=== PATIENT | female | born 1970 | race Caucasian/White ===

== ENCOUNTER 2016-09-27 17:34 | Emergency (ER) | payer OTHER ==
[~2016-09-27] VITALS: Ht 160 cm; Wt 82.5 kg
[~2016-09-27 17:34] MED LIST: IBUP-1542 PO; NITR-58 PO; PHEN-537 PO; TAMO10TA20 PO
[2016-09-27 17:36] VITALS: Ht 160 cm; Wt 82.5 kg
[2016-09-27] MEDS ORDERED: traMADol 50 MG TAB PO ONE (19:30)
--- NOTE | 2016-09-27 19:47 | RADRPT ---
PROCEDURE: XR Chest. CLINICAL INDICATION: chest pain TECHNIQUE: Single frontal view of the chest was obtained COMPARISON: 10/17/15 FINDINGS: The heart and mediastinum are within normal limits. The lungs are clear. There is no pleural effusion or pneumothorax. RPTAT: AA IMPRESSION: No acute disease. .Antonio Chase MD, MD Date Time Electronically viewed and signed by .Antonio Chase MD, on 09/27/2016 19:47 .S/
[2016-09-27 19:56] LABS: ADD UMIC NO; URINE BILIRUBIN (Dip) NEGATIVE (NEGATIVE); URINE BLOOD (Dip) NEGATIVE (NEGATIVE); URINE COLOR LT. YELLOW (YELLOW); URINE GLUCOSE (Dip) NEGATIVE (NEGATIVE); URINE KETONES (Dip) NEGATIVE (NEGATIVE); URINE LEUKOCYTE ESTERASE (Dip) NEGATIVE (NEGATIVE); URINE NITRITE (Dip) NEGATIVE (NEGATIVE); URINE TOTAL PROTEIN (Dip) NEGATIVE (NEGATIVE); URINE UROBILINOGEN (Dip) 0.2 E.U./dL (0.1-1.0)
[2016-09-27 19:59] LABS: BASOPHILS % 0.4 % (0.0-2.0); EOSINOPHILS # 0.1 10^3/ul (0.0-0.5); EOSINOPHILS % 1.9 % (0.0-7.0); HEMOGLOBIN 12.2 g/dl (12.0-16.0); LYMPHOCYTES # 2.8 10^3/ul (0.8-2.9); LYMPHOCYTES % 42.5 % (15.0-51.0); MEAN CORPUSCULAR HEMOGLOBIN 26.8 pg (29.0-33.0); MEAN CORPUSCULAR VOLUME 81.1 fl (82.0-101.0); MEAN PLATELET VOLUME 8.3 fl (7.4-10.4); MONOCYTE # 0.5 10^3/ul (0.3-0.9); NEUTROPHIL # 3.1 10^3/ul (1.6-7.5); NEUTROPHILS % 47.2 % (39.0-77.0); PLATELET COUNT 296 10^3/UL (140-440); RED BLOOD COUNT 4.56 10^6/ul (4.20-5.40); RED CELL DISTRIBUTION WIDTH 15.5 % (11.5-14.5); UNCORRECTED WBC 6.7 10^3/ul (4.8-10.8); WHITE BLOOD COUNT 6.7 10^3/ul (4.8-10.8)
[2016-09-27 20:02] LABS: ALBUMIN 4.1 g/dl (3.3-4.9)
[2016-09-27 20:03] LABS: CHLORIDE 103 mmol/L (97-110); CONDITION 1; LH ANALYZER COMMENTS 1; POTASSIUM 4.4 mmol/L (3.5-5.1); SODIUM 145 mmol/L (135-144)
[2016-09-27 20:05] LABS: ANION GAP 15 (8-16); ASPARTATE AMINO TRANSFERASE 41 IU/L (15-46); BILIRUBIN,INDIRECT 0.1 mg/dl (0-1.1); BILIRUBIN,TOTAL 0.1 mg/dl (0.2-1.3); CARBON DIOXIDE 31 mmol/L (21-31); CREATININE 0.54 mg/dl (0.44-1.00)
[2016-09-27 20:06] LABS: ALANINE AMINOTRANSFERASE 52 IU/L (13-69); ALKALINE PHOSPHATASE 61 IU/L (42-121); BLOOD UREA NITROGEN 9 mg/dl (7-20); CALCIUM 9.1 mg/dl (8.4-10.2); GLUCOSE 82 mg/dl (70-220)
[2016-09-27 20:17] LABS: ALBUMIN/GLOBULIN RATIO 1.05
[2016-09-27 20:30] LABS: TROPONIN-I < 0.010 ng/ml (0.00-0.12)
--- NOTE | 2016-09-27 22:25 | RADRPT ---
PROCEDURE: CT Abdomen and Pelvis without contrast. CLINICAL INDICATION: Abdominal and pelvic pain. Left upper quadrant pain. TECHNIQUE: CT scan of the abdomen and pelvis without contrast was performed. Coronal and sagittal reformatted images were obtained from the axial source images. Images were reviewed on a high-resolu [employer] PACS workstation. Total exam DLP is 904.29 mGy-cm. CTDIvol is 15.87 mGy. One or more of the f ollowing dose reduction techniques were used: Automated exposure control, adjustment of the mA and/o r kV according to patient size, use of iterative reconstruction technique. COMPARISON: 09/22/2015. FINDINGS: The lung bases are normal. There is no pleural effusion. The liver is enlarged and diffusely decreased attenuation consistent with fatty metamorphosis. Ther e is no focal hepatic lesion. The gallbladder is surgically absent with clips noted in the gallbladder bed. The bile ducts are no rmal. The spleen is normal in size. There is no focal splenic lesion. Both adrenals are normal with no enlargement or mass. The pancreas is unremarkable with no mass or evidence of pancreatitis. There is no renal mass or hydronephrosis. There is no renal calculus or ureteral calculus. The abdominal aorta is not dilated. There is no retroperitoneal lymphadenopathy or mass. There is no pelvic lymphadenopathy or mass. The bladder and distal ureters are normal. The appendix is well seen and appears normal. The bowel and mesentery are normal. There is no free fluid or free gas. The osseous structures are unremarkable with no fracture or lytic lesion. IMPRESSION: 1. Hepatomegaly. 2. Fatty metamorphosis of the liver. 3. Status post cholecystectomy. 4. Normal appendix. 5. No urinary tract calculus or hydronephrosis. 6. Otherwise normal noncontrast CT scan of the abdomen and pelvis. RPTAT: QQ .Ranjith Ibanez MD, MD Date Time Electronically viewed and signed by .Ranjith Ibanez MD, on 09/27/2016 22:24 .R/
[2016-09-27] MEDS ORDERED: TRAM50TA2 PO (22:37)
[2016-09-27 22:56] VITALS: BP 125/89; PULSE 75; RESP 16; TEMP 98
--- NOTE | 2016-10-12 17:51 | ERD ---
ER Documentation Chief Complaint Date/Time DATE: 09/27/16 TIME: 17:49 Chief Complaint LEFT RIB PAIN X 1 MONTH, WORSE SINCE YESTERDAY HPI 46-year-old female complains of left upper abdominal pain on and off for months , worse yesterday. It is worse with any movement, better at rest, localized. She denies chest pain, shortness breath or trauma. ROS All systems reviewed and are negative except as per history of present illness. Medications Home Meds Active Scripts Tramadol HCl (Tramadol HCl) 50 Mg Tablet, 50 MG PO Q4 Y for PAIN, #20 TAB Prov:SOLE BENNETT PA-C 09/27/16 Ibuprofen* (Motrin*) 600 Mg Tab, 600 MG PO BID, #30 TAB 0 Refills Prov:QUINN SIU PA-C 10/17/15 Ibuprofen* (Motrin*) 600 Mg Tab, 600 MG PO Q6, #20 TAB Prov:ANGIE ZALDIVAR NP 09/22/15 Phenazopyridine Hcl* (Pyridium*) 100 Mg Tab, 100 MG PO TID Y for PAIN, #3 TAB Prov:ANGIE ZALDIVAR I. [employer] 09/22/15 Nitrofurantoin Monohyd Macrocr* (Macrobid*) 100 Mg Capsr, 100 MG PO BID for 5 Days, CAP Prov:ANGIE ZALDIVAR I. [employer] 09/22/15 Reported Medications Tamoxifen Citrate* (Tamoxifen Citrate*) Unknown Strength Tab, PO BID, TAB 09/22/15 Allergies Allergies: Coded Allergies: No Known Allergy (Unverified , 09/22/15) PMhx/Soc History of Surgery: Yes (cholecystectomy,tubal ligation,abdominalplasty, breast surgery) Anesthesia Reaction: No Hx Neurological Disorder: No Hx Respiratory Disorders: No Hx Cardiac Disorders: No Hx Psychiatric Problems: No Hx Miscellaneous Medical Probl: Yes (UTI) Hx Alcohol Use: No Hx Substance Use: No Hx Tobacco Use: No Smoking Status: Never smoker Physical Exam Vitals See nursing notes Physical Exam General: Well-developed, well-nourished. The patient appears in no acute distress. HEENT: Head is normocephalic, atraumatic. No scleral icterus. Neck: Supple. Nontender. Lungs: Clear to auscultation. Normal air movement. Heart: Regular rate and rhythm. S1 and S2 are normal. No murmurs, gallops, or rubs. Abdomen: Soft, mild tenderness upon palpation in the left upper quadrant, nondistended. Bowel sounds are normoactive. Extremities: No clubbing or cyanosis. Normal pulses. Moving extremities x 4. No weakness. Neurologic: Alert and oriented 3. No focal deficits. Skin: Normal turgor. No rash or lesions. Results 24 hrs Laboratory Tests Test 09/27/16 19:36 Alanine Aminotransferase (ALT/SGPT) 52IU/L Albumin 4.1g/dl Albumin/Globulin Ratio 1.05 Alkaline Phosphatase 61IU/L Anion Gap 15 Aspartate Amino Transf (AST/SGOT) 41IU/L Basophils # 0.010^3/ul Basophils % 0.4% Blood Morphology Comment Blood Urea Nitrogen 9mg/dl Calcium Level 9.1mg/dl Carbon Dioxide Level 31mmol/L Chloride Level 103mmol/L Creatinine 0.54mg/dl Direct Bilirubin 0.00mg/dl Eosinophils # 0.110^3/ul Eosinophils % 1.9% Globulin 3.90g/dl Glucose Level 82mg/dl Hematocrit 37.0% Hemoglobin 12.2g/dl Indirect Bilirubin 0.1mg/dl Lipase 64U/L Lymphocytes # 2.810^3/ul Lymphocytes % 42.5% Mean Corpuscular Hemoglobin 26.8pg Mean Corpuscular Hemoglobin Concent 33.0g/dl Mean Corpuscular Volume 81.1fl Mean Platelet Volume 8.3fl Monocytes # 0.510^3/ul Monocytes % 8.0% Neutrophils # 3.110^3/ul Neutrophils % 47.2% Nucleated Red Blood Cells # 0.010^3/ul Nucleated Red Blood Cells % 0.0/100WBC Platelet Count 14957^3/UL Potassium Level 4.4mmol/L Red Blood Count 4.5610^6/ul Red Cell Distribution Width 15.5% Sodium Level 145mmol/L Total Bilirubin 0.1mg/dl Total Protein 8.0g/dl Troponin I < 0.010ng/ml Urine Bilirubin NEGATIVE Urine Clarity SLIGHTLY CLOUDY Urine Color LT. YELLOW Urine Glucose NEGATIVE% Urine Hemoglobin NEGATIVE Urine Ketones NEGATIVE Urine Leukocyte Esterase NEGATIVE Urine Nitrite NEGATIVE Urine Specific [place] 1.010 Urine Total Protein NEGATIVE Urine Urobilinogen 0.2 E.U./dL Urine pH 7.5 White Blood Count 6.710^3/ul Current Medications Medications (Trade) Dose Ordered Sig/Maru Route PRN Reason Start Time Stop Time Status Last Admin Dose Admin Tramadol HCl (Ultram) 50 mg ONCE ONCE PO 09/27/16 19:30 09/27/16 19:31 DC 09/27/16 19:32 EKG: Reviewed by Dr. Tobar Rate/Rhythm: Normal Sinus Rhythm rate of 63 QRS, ST, T-waves: No changes consistent w/ acute ischemia Impression: No evidence of ischemia or arrhythmia PROCEDURE: CT Abdomen and Pelvis without contrast. CLINICAL INDICATION: Abdominal and pelvic pain. Left upper quadrant pain. TECHNIQUE: CT scan of the abdomen and pelvis without contrast was performed. Coronal and sagittal reformatted images were obtained from the axial source images. Images were reviewed on a high-resolution PACS workstation. Total exam DLP is 904.29 mGy-cm. CTDIvol is 15.87 mGy. One or more of the following dose reduction techniques were used: Automated exposure control, adjustment of the mA and/or kV according to patient size, use of iterative reconstruction technique. COMPARISON: 09/22/2015. FINDINGS: The lung bases are normal. There is no pleural effusion. The liver is enlarged and diffusely decreased attenuation consistent with fatty metamorphosis. There is no focal hepatic lesion. The gallbladder is surgically absent with clips noted in the gallbladder bed. The bile ducts are normal. The spleen is normal in size. There is no focal splenic lesion. Both adrenals are normal with no enlargement or mass. The pancreas is unremarkable with no mass or evidence of pancreatitis. There is no renal mass or hydronephrosis. There is no renal calculus or ureteral calculus. The abdominal aorta is not dilated. There is no retroperitoneal lymphadenopathy or mass. There is no pelvic lymphadenopathy or mass. The bladder and distal ureters are normal. The appendix is well seen and appears normal. The bowel and mesentery are normal. There is no free fluid or free gas. The osseous structures are unremarkable with no fracture or lytic lesion. IMPRESSION: 1. Hepatomegaly. 2. Fatty metamorphosis of the liver. 3. Status post cholecystectomy. 4. Normal appendix. 5. No urinary tract calculus or hydronephrosis. 6. Otherwise normal noncontrast CT scan of the abdomen and pelvis. RPTAT: QQ .Ranjith Ibanez MD, Date Time Electronically viewed and signed by .Ranjith Ibanez MD, MD on 09/27/2016 22:24 PROCEDURE: XR Chest. CLINICAL INDICATION: chest pain TECHNIQUE: Single frontal view of the chest was obtained COMPARISON: 10/17/15 FINDINGS: The heart and mediastinum are within normal limits. The lungs are clear. There is no pleural effusion or pneumothorax. RPTAT: AA IMPRESSION: No acute disease. .Antonio Chase MD, Date Time Electronically viewed and signed by .Antonio Chase MD, on 09/27/2016 19: 47 .S/ CC: SOLE BENNETT PA-C Procedures/MDM 46-year-old female comes in with left upper quadrant abdominal pain. Abdominal pain at this time is unknown. Rule out acute coronary syndrome, troponin was negative EKG shows no ischemia. Other pino her CT scan was normal, there is no splenomegaly or splenic rupture, free air, masses, pneumonia. I have advised patient to follow-up with her primary care physician, otherwise at this time I do not see an acute or surgical or life-threatening processes and patient is appropriate to be discharged home. Departure Diagnosis: Primary Impression: Abdominal pain Condition: Good Patient Instructions: Abdominal Pain Additional Instructions: Call your primary care doctor TOMORROW for an appointment during the next 1-2 days.See the doctor sooner or return here if your condition worsens before your appointment time. SOLE BENNETT PA-C Oct 12, 2016 17:51
== END 2016-09-27 22:57 | disposition home or self-care (01) ==
LOC: FTE 17:34
DX: R10.12 Left upper quadrant pain (principal); R10.2 Pelvic and perineal pain
CPT/HCPCS: 36415; 71010; 74176; 80053; 81003; 83690; 84484; 85025; 93005